=== PATIENT | female | born 1990 | race Two or more races ===

== ENCOUNTER 2023-03-05 17:40 | Emergency (ER) | payer SELFPAY ==
[~2023-03-05] VITALS: Ht 154.9 cm; Wt 104.0 kg
[~2023-03-05 17:40] MED LIST: PREN-96 PO
[2023-03-05 18:00] VITALS: BP 125/86; PULSE 65; RESP 18; O2SAT 95
== END 2023-03-06 02:24 | disposition left against medical advice (07) ==
LOC: ER 17:40
DX: R05.9 Cough, unspecified (principal); M79.10 Myalgia, unspecified site; Z53.29 Procedure and treatment not carried out because of patient's decision for other reasons